=== PATIENT | male | born 1965 | race Caucasian/White ===

== ENCOUNTER 2025-07-19 12:12 | Observation (INO) | payer SELFPAY ==
[2025-07-19 14:47] VITALS: BMI 45.2
[2025-07-19] MEDS ORDERED: Senokot S 8.6-50 MG TAB PO PRN (16:24)
[2025-07-19] MEDS ORDERED: Acetaminophen 325 MG TAB PO PRN (16:24)
[2025-07-19] MEDS ORDERED: Dextrose 50% Abboject 50 ML SYRINGE SLOW IVP PRN (16:26)
[2025-07-19] MEDS ORDERED: Glucagon 1 MG/ML KIT IM PRN (16:26)
[2025-07-19] MEDS: Carvedilol 6.25 MG TAB PO SCH (17:36)
[2025-07-19] MEDS: Amiodarone 200 MG TAB PO SCH (20:22)
[2025-07-19] MEDS: Apixaban 5 MG TAB PO SCH (20:23)
[2025-07-19] MEDS: Melatonin 3 MG TAB PO PRN (20:23)
[2025-07-19] MEDS: Valsartan 80 MG TAB PO SCH (20:24)
[2025-07-20 06:52] LABS: #Basophils 0.06 10x3/uL (0.0-0.2); #Eosinophils 0.13 10x3/uL (0.0-0.7); #Monocytes 0.90 10x3/uL (0.11-0.59); #Neutrophils 8.08 10x3/uL (1.40-6.50); %Basophils 0.5 % (0.0-1.0); %Eosinophils 1.1 % (0.0-10.0); %Lymphocytes 18.1 % (21.0-51.0); %Monocytes 7.8 % (0.0-10.0); %Neutrophils 70.4 % (42.0-75.0); Hematocrit 36.7 % (42.0-52.0); Hemoglobin 12.5 g/dL (14.0-18.0); Mean Corpuscular Hemoglobin 31.4 pg (27.0-31.0); Mean Corpuscular Volume 92.2 fL (78.0-98.0); Platelet Count 421 10x3/uL (130-400); Red Blood Cell (RBC) Count 3.98 mill/uL (4.70-6.10); White Blood Cell (WBC) Count 11.49 10x3/uL (4.8-10.8)
[2025-07-20 07:06] LABS: Anion Gap 12 mmol/L (10-20); BUN (Urea Nitrogen) 11 mg/dL (8.4-25.7); Calc. Creatinine Clearance 218 mL/min (70-130); Calcium 8.4 mg/dL (7.8-10.44); Carbon Dioxide 28 mmol/L (22-29); Chloride 95 mmol/L (98-107); Glucose 182 mg/dL (70-105); Potassium 4.3 mmol/L (3.5-5.1); Sodium 131 mmol/L (136-145)
[2025-07-20] MEDS: Aspirin Chewable 81 MG TAB PO SCH (10:58)
[2025-07-20] MEDS: Isosorbide Mononitrate 30 MG ER.TAB.S PO SCH (10:59)
[2025-07-20] MEDS: Insulin Glargine 30 UNITS/0.3 ML VIAL SC SCH (11:00)
[2025-07-20 12:34] VITALS: BP 126/77; TEMP 97.9
== END 2025-07-20 12:25 | disposition home or self-care (01) ==
LOC: T4-B 14:06
PROVIDERS: ADMIT Hospitalist; ATTEND Internal Medicine
DX: E11.649 Type 2 diabetes mellitus with hypoglycemia without coma (principal); I48.91 Unspecified atrial fibrillation; I25.10 Atherosclerotic heart disease of native coronary artery without angina pectoris; Z95.5 Presence of coronary angioplasty implant and graft; Z79.4 Long term (current) use of insulin; Z79.01 Long term (current) use of anticoagulants; Z79.84 Long term (current) use of oral hypoglycemic drugs; Z79.02 Long term (current) use of antithrombotics/antiplatelets; Z79.899 Other long term (current) drug therapy
CPT/HCPCS: 36415; 36416; 80048; 85025; G0378; J1815